=== PATIENT | female | born 1955 | race Two or more races ===

== ENCOUNTER 2024-09-20 13:58 | Emergency (ER) | payer OTHER ==
[~2024-09-20] VITALS: Ht 157.5 cm; Wt 71.5 kg
--- NOTE | 2024-09-20 14:23 | ED.PDOC ---
HPI Comments 69Y F presents to ED via EMS for chief complaint chest pain with palpitations, SOB, fluttery feeling, and dry cough. Pt denies n/v/d, runny nose, and sick contact. Per EMS, pt was tachycardic with HR in the 140s. Pt was provided with one bolus and HR decreased to 109. Chief Complaint: Chest Pain Time Seen by MD: 14:01 Reviewed Notes: Nurses Notes, Radio Broadcaster Notes, Medications, Allergies Allergies: Coded Allergies: Statins (Verified Allergy, Unknown, 09/20/24) Sulfa Antibiotics (Verified Allergy, Unknown, 09/20/24) Information Source: Patient, Emergency Med Personnel Mode of Arrival: EMS Brought in by: EMS Severity: Moderate Timing: Hours Duration: Since onset Prehospital treatment: 12 Lead EKG, IVF Location: Chest (L) Radiation: No Radiation Quality: Other Onset: At Rest Cardiac Risk Factors: None PE Risk Factors: None History of: None Modifying Factors: Nothing Associated Signs and Symptoms: SOB, Palpitations, Other Past Medical History PAST MEDICAL HISTORY: Denies Surgical History: Denies all surgeries SENIOR PRODUCT MANAGER History: Denies all SENIOR PRODUCT MANAGER Hx Family History Family History: Unknown Social History Smoker: Non-Smoker Alcohol: Denies ETOH Use Drugs: Denies Drug Use Lives In: Home Constitutional: denies: chills, diaphoresis, fatigue, fever, malaise, sweats, weakness, others EENTM: denies: blurred vision, double vision, ear bleeding, ear discharge, ear drainage, ear pain, ear ringing, eye pain, eye redness, hearing loss, mouth pain, mouth swelling, nasal discharge, nose bleeding, nose congestion, nose pain, photophobia, tearing, throat pain, throat swelling, voice changes, others Respiratory: reports: cough (dry), shortness of breath; denies: hemoptysis, orthopnea, SOB at rest, SOB with excertion, stridor, wheezing, others Cardiovascular: reports: chest pain, palpitations; denies: dizzy spells, diaphoresis, Dyspnea on exertion, edema, irregular heart beat, left arm pain, lightheadedness, PND, syncope, others Gastrointestinal: denies: abdomen distended, abdominal pain, blood streaked bowels, constipated, diarrhea, dysphagia, difficulty swallowing, hematemesis, melena, nausea, poor appetite, poor fluid intake, rectal bleeding, rectal pain, vomiting, others Genitourinary: denies: abnormal vagina bleeding, burning, dyspareunia, dysuria, flank pain, frequency, hematuria, incontinence, pain, , vagina discharge, urgency, others Neurological: denies: dizziness, fainting, headache, left sided numbness, left sided weakness, numbness, paresthesia, pre-existing deficit, right sided numbness, right sided weakness, seizure, speech problems, tingling, tremors, weakness, others Musculoskeletal: denies: back pain, gout, joint pain, joint swelling, muscle pain, muscle stiffness, neck pain, others Integumetry: denies: bruises, change in color, change in hair/nails, dryness, laceration, lesions, lumps, rash, wounds, others Allergic/Immunocompromised: denies: Difficulty Healing, Frequent Infections, Hives, Itching, others Hematologic/Lymphatic: denies: anemia, blood clots, easy bleeding, easy bruising, swollen glands, others Endocrine: denies: excessive hunger, excessive sweating, excessive thirst, excessive urination, flushing, intolerance to cold, intolerance to heat, unexplained weight gain, unexplained weight loss, others Psychiatric: denies: anxiety, bipolar disorder, depression, hopeless, panic disorder, schizophrenia, sleepless, suicidal, others All Other Systems: Reviewed and Negative Physical Exam General Appearance: No Apparent Distress, Normal HEENT: Normal ENT Inspection, Pharynx Normal, TMs Normal Neck: Full Range of Motion, Non-Tender, Normal, Normal Inspection Respiratory: Chest Non-Tender, Lungs Clear, No Accessory Muscle Use, No R espiratory Distress, Normal Breath Sounds Cardiovascular: No Edema, No JVD, No Murmur, No Gallop, Normal Peripheral Pulses, Regular Rate/Rhythm Breast Exam: Deferred Gastrointestinal: No Organomegaly, Non Tender, No Pulsatile Mass, Normal Bowel Sounds, Soft Genitalia: Deferred Pelvic: Deferred Rectal: Deferred Extremities: No calf tenderness, Normal capillary refill, Normal inspection, Normal range of motion, Non-tender, No pedal edema Musculoskeletal : Apperance: Normal Neurologic: Alert, 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 Was a procedure done?: No CP Differential Dx Differential Diagnosis: Anxiety / Panic Attack, Electrolyte Disorder, Heart Failure, Sinus Tachycardia X-Ray, Labs, Meds, VS Vital Signs Date Time Temp Pulse Resp B/P (MAP) Pulse Ox O2 Delivery O2 Flow Rate FiO2 09/20/24 15:16 85 09/20/24 14:13 97.8 109 20 154/82 (106) 100 09/20/24 13:59 104 Lab Test 09/20/24 18:21 09/20/24 16:13 09/20/24 14:32 Range/Units Troponin I High Sensitivity 7 7 < 3 L </=34 ng/L White Blood Count 7.0 4.4-10.8 10^3/uL Red Blood Count 5.15 4.0-5.20 10^6/uL Hemoglobin 15.2 12.2-16.2 g/dL Hematocrit 45.8 36.0-46.0 % Mean Corpuscular Volume 88.9 80.0-100.0 fL Mean Corpuscular Hemoglobin 29.5 28.0-32.0 pg Mean Corpuscular Hemoglobin Concent 33.2 32.0-36.0 g/dL Red Cell Distribution Width 14.4 H 11.8-14.3 % Platelet Count 244 140-450 10^3/uL Mean Platelet Volume 8.7 6.9-10.8 fL Neutrophils (%) (Auto) 80.5 H 37.0-80.0 % Lymphocytes (%) (Auto) 14.4 10.0-50.0 % Monocytes (%) (Auto) 4.2 0.0-12.0 % Eosinophils (%) (Auto) 0.4 0.0-7.0 % Basophils (%) (Auto) 0.5 0.0-2.0 % Neutrophils # (Auto) 5.6 1.6-8.6 10 ^3/uL Lymphocytes # (Auto) 1.0 0.4-5.4 10 ^3/uL Monocytes # (Auto) 0.3 0-1.3 10 ^3/uL Eosinophils # (Auto) 0 0-0.8 10 ^3/uL Basophils # (Auto) 0 0-0.2 10 ^3/uL Nucleated Red Blood Cells 0.1 % Sodium Level 140 136-145 mmol/L Potassium Level 3.4 L 3.5-5.1 mmol/L Chloride Level 107 98-107 mmol/L Carbon Dioxide Level 23 20-31 mmol/L Anion Gap 10 5-15 Blood Urea Nitrogen 9 9-23 mg/dL Creatinine 0.77 0.550-1.02 mg/dL Glomerular Filtration Rate Calc 84 >90 mL/min BUN/Creatinine Ratio 11.7 10.0-20.0 Serum Glucose 115 H 74-106 mg/dL Calcium Level 9.9 8.7-10.4 mg/dL [place] [id number] Ph: [phone] DIAGNOSTIC IMAGING Diagnostic Imaging Report : [id number] Signed PATIENT: MERYL AMBRIZ ACCT: [id number] UNIT: [id number] : 1955 LOC: ER ROOM / BED: / AGE / SEX: 69 / F ADM STATUS: REG ER SERVICE 1500 ORDERING PHYSICIAN: PEPE BENJAMIN MD PROCEDURE(s): CXRP - CHEST PORTABLE REASON: chest pain ORDER NUMBER(s): [id number], ACCESSION NUMBER(s): [id number] CHEST RADIOGRAPH Indication: chest pain Technique: Single frontal view of the chest was obtained Comparison: None FINDINGS: Lines and Tubes: None Lungs: No focal consolidation. Pleura: No effusion. No pneumothorax. Cardiomediastinal contours: Unremarkable Bones: No acute osseous abnormality. IMPRESSION: 1. No acute cardiopulmonary disease. ATED BY: JULIEN RYDER MD DICTATED DATE/TIME: 09/20/241512 SIGNED BY: JULIEN RYDER MD SIGNED DATE/TIME: 09/20/241512 CC: Time of 1ST Reevaluation: 14:31 Reevaluation 1ST: Unchanged Patient Education/Counseling: Diagnosis, Treatment Family Education/Counseling: No Family Present Departure 1 Departure Time of Disposition: 20:23 (Patient presented with chest pain that was concerning for possible STEMI, ACS, PE, Pneumonia, Muscle Strain, COPD, Dissection. Data: 1. I ordered and reviewed the result of at least 3 labs including a CBC, BMP, and Troponin. 2. I independently interpreted the following tests: EKG which shows sinus tachycardia and Chest X-ray which shows benign chest.Risk:This patient has a high risk of morbidity due to further diagnostic testing or treatment and may suffer from an acute cardiac or respiratory disorder. Workup reveals concern for ACS and patient should be admitted for further workup and possible expert consultation. ) Impression: Primary Impression: Acute chest pain Additional Impression: Dyspnea Qualified Codes: R06.09 - Other forms of dyspnea Disposition: ADMITTED INPATIENT Admit to: Med Surg Condition: Serious Critical Care Note Critical Care Time?: Yes Critical care comment: Acute chest pain Authorized and Performed by: Pepe Benjamin MD Total critical care time: Approximately 33 minutes Due to a high probability of clinically significant, life threatening deterioration, the patient required my highest level of preparedness to intervene emergently and I personally spent this critical care time directly and personally managing the patient. This critical care time included obtaining a history; examining the patient; pulse oximetry; ordering and review of studies; arranging urgent treatment with development of a management plan; evaluation of patient's response to treatment; frequent reassessment; and, discussions with other providers. This critical care time was performed to assess and manage the high probability of imminent, life-threatening deterioration that could result in multi-organ failure. It was exclusive of separately billable procedures and treating other patients and teaching time. Please see my other sections and the rest of the note for further information on patient assessment and treatment. Stability Stability form required: No Heart Score Heart Score: Heart Score Response (Comments) Value History Slightly Suspicious 0 EKG Normal 0 Age >65 2 Risk Factors 1 or 2 risk factors 1 Troponin Normal limit 0 Total 3 I personally scribed for PEPE BENJAMIN MD ([employer]) on 09/20/24 at 14:23. Electronically submitted by Tricia Gant ([employer]). I personally scribed for PEPE BENJAMIN MD ([employer]) on 09/20/24 at 15:18. Electronically submitted by Tricia Gant ([employer]). PEPE BENJAMIN MD Sep 20, 2024 14:23
[2024-09-20 15:03] LABS: Basophils # (auto) 0 10 ^3/uL (0-0.2); Basophils % (auto) 0.5 % (0.0-2.0); Eosinophils # (auto) 0 10 ^3/uL (0-0.8); Eosinophils % (auto) 0.4 % (0.0-7.0); Hematocrit 45.8 % (36.0-46.0); Hemoglobin 15.2 g/dL (12.2-16.2); Lymphocytes % (auto) 14.4 % (10.0-50.0); Mean Corpuscular Hemoglobin 29.5 pg (28.0-32.0); Mean Corpuscular Hgb Conc. 33.2 g/dL (32.0-36.0); Mean Corpuscular Volume 88.9 fL (80.0-100.0); Monocytes # (auto) 0.3 10 ^3/uL (0-1.3); Monocytes % (auto) 4.2 % (0.0-12.0); Neutrophils # (auto) 5.6 10 ^3/uL (1.6-8.6); Neutrophils % (auto) 80.5 % (37.0-80.0); Nucleated Red Blood Cells % 0.1 %; Platelet Count (auto) 244 10^3/uL (140-450); Red Blood Cells 5.15 10^6/uL (4.0-5.20); Red Cell Distribution Width 14.4 % (11.8-14.3)
[2024-09-20 15:12] LABS: Sodium 140 mmol/L (136-145)
[2024-09-20 15:13] LABS: Anion Gap 10 (5-15); Carbon Dioxide 23 mmol/L (20-31)
[2024-09-20 15:14] LABS: Calcium 9.9 mg/dL (8.7-10.4); Chloride 107 mmol/L (98-107); Potassium 3.4 mmol/L (3.5-5.1)
--- NOTE | 2024-09-20 15:15 | DVH ---
CHEST RADIOGRAPH Indication: chest pain Technique: Single frontal view of the chest was obtained Comparison: None FINDINGS: Lines and Tubes: None Lungs: No focal consolidation. Pleura: No effusion. No pneumothorax. Cardiomediastinal contours: Unremarkable Bones: No acute osseous abnormality. IMPRESSION: 1. No acute cardiopulmonary disease.
[2024-09-20 15:18] LABS: BUN/Creatinine Ratio 11.7 (10.0-20.0)
[2024-09-20 15:20] LABS: Blood Urea Nitrogen 9 mg/dL (9-23); Glucose 115 mg/dL (74-106)
[2024-09-20] MEDS: MORPHINE SULFATE 4 MG/ML SYR/VIAL IV ONE (23:00)
[2024-09-20] MEDS: ASPirin 81 mg TAB PO ONE (23:00)
[2024-09-20] MEDS: NITROGLYCERIN 0.4 MG SL TAB SL ONE (23:00)
[2024-09-20] MEDS: ACETAMINOPHEN 325 MG TAB PO ONE (23:00)
[2024-09-20] MEDS: ONDANSETRON HCL 4 MG/2 ML VIAL IV ONE (23:00)
[2024-09-21 00:02] VITALS: BP 178/74; PULSE 80; RESP 13; TEMP 98.5; O2SAT 99
[2024-09-21 00:30] LABS: COVID19 ANTIGEN SOFIA FIA NEGATIVE (NEGATIVE); Rapid Influenza A Negative (Negative); Rapid Influenza B Negative (Negative)
--- NOTE | 2024-10-01 07:00 | ECG ---
[facility] Test Date: 2024-09-20 Test Time: 13:59:49 Pat Name: MERYL AMBRIZ Department: er Room: Gender: F Tie Puller: jhank : 1955 Requested By: JEFF QUINTERO Order Number: [id number] Reading MD: Fabrizio Macedo Measurements Intervals [place] Rate: 104 P: 79 MI: 176 QRS: 70 QRSD: 83 T: 72 QT: 346 QTc: 455 Interpretive Statements Sinus tachycardia Anteroseptal infarct, age indeterminate Electronically Signed On 10-02-2024 9:30:40 PST by Fabrizio Macedo Please click the below link to view image of tracing.
--- NOTE | 2024-10-01 07:00 | ECG ---
[facility] Test Date: 2024-09-20 Test Time: 15:16:26 Pat Name: MERYL AMBRIZ Department: ED Room: Gender: F Haunted History Tour Guide: ROSA : 1955 Requested By: JEFF QUINTERO Order Number: [id number] Reading MD: Fabrizio Macedo Measurements Intervals [place] Rate: 85 P: -11 DC: 182 QRS: 43 QRSD: 158 T: 50 QT: 344 QTc: 409 Interpretive Statements Sinus rhythm Nonspecific intraventricular conduction delay Electronically Signed On 10-02-2024 9:30:51 PST by Fabrizio Macedo Please click the below link to view image of tracing.
== END 2024-09-21 01:10 | disposition home or self-care (01) ==
LOC: ER 13:58 → EDBD 13:58 → ER 09-21 01:10
DX: R07.89 Other chest pain (principal); R06.09 Other forms of dyspnea; Z20.822 Contact with and (suspected) exposure to COVID-19; Z88.2 Allergy status to sulfonamides; Z88.8 Allergy status to other drugs, medicaments and biological substances
CPT/HCPCS: 36415; 71045; 80048; 84484; 85025; 85379; 87426; 87804; 93005